=== PATIENT | female | born 1975 | race Caucasian/White ===

== ENCOUNTER → 2019-01-27 | Outpatient (CLI) | payer BC ==
--- NOTE | 2019-01-24 08:30 | NUR ---
LEFT MSG ON MACHINE TO CALL BACK SO I CAN GO OVER MEDS, ALLERGIES AND PMH. PHONE NUMBER LEFT ON MACHINE
[~2019-01-27] VITALS: Ht 165.1 cm; Wt 141.7 kg
[~2019-01-27] MED LIST: ABILIFY 10MG TA10 MG PO; AJOVY225 MG/1.5 SQ; ANTIVERT 25MG25 MG PO; BUSPAR5 MG PO; CATAFLAM50 MG PO; CELEXA40 MG PO; CYMBALTA 30MG30 MG PO; EFFE25TA PO; EFFEXOR 75M75 MG/TAB PO; ESCITALOPRAM; ESTRACE 1MG1 MG/TAB PO; EXCEDRIN TENSION HA PO; FASTIN30 MG PO; FERROUS SULFATE27 MG PO; GUAIATUSSIN AC120 ML PO; IBUPROFEN 200200 MG PO; LAMOTRIGINE; LEVAQUIN 5500 MG/TA1 PO; LEVOXYL0.1 MG PO; LEXAPRO 10MG10 MG PO; LORTAB 5/500 501 TAB; LORTAB 7.5/5001 TAB PO; MAG-OX 400400 MG/TAB PO; MIRAPEX0.25 MG PO; MISOPROSTOL200 MCG PO; MOBIC15 MG PO; MUCINEX 60600 MG/TA1 PO; MULTI VITAMINS1 TAB PO; MULTIPLE VITAMI1 CAP PO; NORCO 325 MG-51 TAB PO; PERCOCET 325 MG1 TA2 PO; PREMARIN 1.251.25 MG PO; PRENATAL1 TA1 PO; PRILOSEC 20MG20 MG PO; PROTONIX 40MG T40 MG PO; REQUIP3 MG PO; SYNTHROID 0.10.15 MG PO; TUSS PO; ULTRAM 50MG TAB50 MG PO; XANAX .25M0.25 MG/TA PO; ZANAFLEX CAPSULE2 MG PO; ZOFRAN 4MG T4 MG/TAB PO; ZOLOFT 100MG100 MG PO; ZOMIG5 M1 NS; [UNRECOGNIZED DRUG - OTHER] PO
[2019-01-27 05:45] VITALS: BP 142/95; PULSE 88
[2019-01-27 07:11] VITALS: BP 141/84; PULSE 82
[2019-01-27 07:18] VITALS: BP 152/80; PULSE 99
[2019-01-27 07:19] VITALS: BP 140/74; PULSE 96
[2019-01-27 07:20] VITALS: BP 136/79; PULSE 88
== END ==
LOC: COL.CARD 05:16
DX: I20.8 Other forms of angina pectoris (principal)
CPT/HCPCS: A9500; J2785

== ENCOUNTER 2019-02-08 11:15 | Day surgery (SDC) | payer BC ==
[~2019-02-08] VITALS: Ht 165.1 cm; Wt 140.5 kg
[2019-02-08] VITALS (9 sets, daily range): BP systolic 116–133; BP diastolic 59–85; PULSE 89–96; TEMP 98.1
[2019-02-08 11:55] LABS: HEMATOCRIT 41.7 % (37.0-47.0); HEMOGLOBIN 13.9 g/dl (12.5-16.0); MEAN CELL VOLUME 91 fl (80.0-100.0); MEAN CORPUSCULAR HEMOGLOBIN 30 pg (27.0-31.0); MEAN CORPUSCULAR HGB CONC 33 g/dl (33.0-37.0); MEAN PLATELET VOLUME 9.1 fl (7.4-10.4); PLATELET COUNT 387 K/mm3 (130-400); RED BLOOD COUNT 4.58 M/mm3 (4.10-5.30); REDCELL DISTRIBUTION WIDTH-CV 13.1 % (11.5-14.5)
[2019-02-08 12:02] LABS: PROTHROMBIN TIME 11.4 SECONDS (9.7-12.8)
[2019-02-08] MEDS ORDERED: MAG-OX 400400 MG/TAB PO (12:04)
[2019-02-08] MEDS ORDERED: EFFEXOR-XR150 MG PO (12:08)
[2019-02-08 12:09] LABS: CALCIUM 9.4 mg/dL (8.4-10.2); CREATININE, serum 0.65 mg/dL (0.52-1.25); POTASSIUM 4.1 mmol/L (3.4-5.0)
--- NOTE | 2019-02-08 16:54 | NUR ---
SEE FA[facility]AD FOR MEDICATION ADMINISTRATION TIMES AND INTRA AND POST SEDATION ASSESSMENT, RASS SCORE.
--- NOTE | 2019-02-08 17:18 | NUR ---
Back from [facility]. TR band to right wrsit with 12 cc air, good pulses noted and cap refill < 3 secs noted. VSS. Mother bedside
--- NOTE | 2019-02-08 19:39 | NUR ---
TR band deflated with no bleeding. Pressure dressing applied. INT discontinued intact. Discharge instructions given. Transferred to private car by nilda
== END 2019-02-08 19:41 | disposition home or self-care (01) ==
LOC: COL.CAR 11:15
PROVIDERS: Internal Medicine Cardiovascular Disease
DX: I25.118 Atherosclerotic heart disease of native coronary artery with other forms of angina pectoris (principal); I10 Essential (primary) hypertension; R60.0 Localized edema; K21.9 Gastro-esophageal reflux disease without esophagitis; F32.9 Major depressive disorder, single episode, unspecified; E66.9 Obesity, unspecified; E03.9 Hypothyroidism, unspecified; E78.5 Hyperlipidemia, unspecified; Z68.43 Body mass index [BMI] 50.0-59.9, adult; Z90.710 Acquired absence of both cervix and uterus; Z83.3 Family history of diabetes mellitus; Z82.49 Family history of ischemic heart disease and other diseases of the circulatory system; Z80.9 Family history of malignant neoplasm, unspecified; Z91.040 Latex allergy status; Z88.8 Allergy status to other drugs, medicaments and biological substances
CPT/HCPCS: J1644; J2250; J2405; J3010; Q9967

== ENCOUNTER 2019-04-26 11:13 | Outpatient (CLI) | payer BC ==
[~2019-04-26] VITALS: Ht 165.1 cm; Wt 138.6 kg
[~2019-04-26 11:13] MED LIST changes: -CATAFLAM50 MG PO; +EFFEXOR-XR150 MG PO; -LEVOXYL0.1 MG PO; +LEVOXYL0.2 MG PO; +VOLTAREN 50MG T50 MG PO
[2019-04-26 11:35] VITALS: BP 116/65; PULSE 79; TEMP 98
--- NOTE | 2019-04-26 11:37 | NUR ---
Pt arrived for scheduled infusion early.This nurse called and requested orders three times.Per office they are awaiting PA info and will send orders.Spoke with Sallie again at 1130,Per Sallie they will fax orders shortly.
[2019-04-26] MEDS ORDERED: MAG-OX 400400 MG/TAB PO (13:57)
[2019-04-26] MEDS ORDERED: VITAMIN D 50,1.25 MG PO (14:00)
[2019-04-26] MEDS ORDERED: AIMOVIG AU70 MG/1 ML SQ (14:02)
[2019-04-26] MEDS ORDERED: MIRAPEX 1MG PO (14:03)
[2019-04-26] MEDS ORDERED: ZESTRIL 20MG TA20 MG PO (14:09)
[2019-04-26] MEDS ORDERED: NORCO 325 MG-51 TAB PO (14:17)
[2019-04-26] MEDS ORDERED: RELPAX 40MG TAB40 MG PO (14:18)
== END 2019-04-26 14:18 | disposition home or self-care (01) ==
LOC: EUO 11:13
DX: G43.719 Chronic migraine without aura, intractable, without status migrainosus (principal)
CPT/HCPCS: J2550; J3475

== ENCOUNTER → 2019-05-18 | Outpatient (CLI) | payer BC ==
[~2019-05-18] VITALS: Ht 165.1 cm; Wt 138.2 kg
[~2019-05-18] MED LIST changes: +AIMOVIG AU70 MG/1 ML SQ; +MIRAPEX 1MG PO; +RELPAX 40MG TAB40 MG PO; +VITAMIN D 50,1.25 MG PO; +ZESTRIL 20MG TA20 MG PO
[2019-05-18 13:22] VITALS: BP 144/91; PULSE 94
[2019-05-18 13:55] VITALS: BP 122/73; PULSE 90
[2019-05-18 14:00] VITALS: BP 122/73; PULSE 89
--- NOTE | 2019-05-18 14:00 | NUR ---
PT TO EU 11 VIA CART FROM LUMBAR PUNCTURE, PT IS ALERT, MOVES WELL IN BED. BANDAID TO LOWER BACK IS CLEAN AND DRY. CALL LIGHT IN REACH, MOTHER IN ROOM
[2019-05-18 14:30] VITALS: BP 115/71; PULSE 88
[2019-05-18 14:31] LABS: GLUCOSE,CSF 53 mg/dL (40-70); TOTAL PROTEIN,CSF 36 mg/dL (15-45)
[2019-05-18 15:00] VITALS: BP 117/75; PULSE 89
--- NOTE | 2019-05-18 15:00 | NUR ---
PT UP ON BSC TO VOID, DR MARTINS NOTIFIED AND STATED SHE MAY, TOLERATED WELL, BACK TO BED, NO C/O
[2019-05-18 15:12] LABS: CSF APPEARANCE CLEAR; CSF COLOR COLORLESS; CSF MONONUCLEAR 50 % (70-100); CSF POLYMORPHONUCLEAR 50 % (0-6); CSF RBC 1 /mm3 (0-0)
[2019-05-18 15:30] VITALS: BP 119/70; PULSE 87
--- NOTE | 2019-05-18 15:30 | NUR ---
REVIEWED DISCHARGE INST. GIVEN TO MOM AND PT WITH VERBAL UNDERSTANDING ON ACTIVITY, CARE OF SITE AND FOLLOWUP WITH ORDERING DRKvng AT 1550 PT SAT ON SIDE OF BED, TOLERATED WELL, BANDAID SITE REMAINS THE SAME. UP IN ROOM, THEN DISCHARGED VIA W/C TO CAR WITH MOM
== END ==
LOC: COL.RAD 12:59
PROVIDERS: Nurse Practitioner
DX: G43.011 Migraine without aura, intractable, with status migrainosus (principal)

== ENCOUNTER → 2019-05-20 | Outpatient (CLI) | payer BC | LOC: COL.RAD 10:09 | DX: G43.011 Migraine without aura, intractable, with status migrainosus (principal) | CPT/HCPCS: A9585 ==

== ENCOUNTER → 2019-06-01 | Outpatient (CLI) | payer BC | LOC: MHCPAIN 13:02 | DX: G89.29 Other chronic pain (principal); M47.812 Spondylosis without myelopathy or radiculopathy, cervical region; R51 Headache; M54.81 Occipital neuralgia | CPT/HCPCS: G0463 ==

== ENCOUNTER → 2019-06-06 | Outpatient (CLI) | payer BC | LOC: MHCPAIN 12:36 | DX: M54.81 Occipital neuralgia (principal) | CPT/HCPCS: J1100 ==

== ENCOUNTER → 2019-06-15 | Outpatient (CLI) | payer BC | LOC: MHCPAIN 11:11 | DX: G89.29 Other chronic pain (principal); M54.81 Occipital neuralgia; R51 Headache; M47.812 Spondylosis without myelopathy or radiculopathy, cervical region | CPT/HCPCS: G0463 ==

== ENCOUNTER → 2019-07-13 | Outpatient (CLI) | payer BC | LOC: MHCPAIN 13:13 | DX: G89.29 Other chronic pain (principal); M54.81 Occipital neuralgia; R51 Headache; M47.812 Spondylosis without myelopathy or radiculopathy, cervical region | CPT/HCPCS: G0463 ==

== ENCOUNTER → 2019-12-16 | Outpatient (CLI) | payer BC | LOC: COL.RAD 07:28 | DX: R19.7 Diarrhea, unspecified (principal); R12 Heartburn; R11.2 Nausea with vomiting, unspecified | CPT/HCPCS: A9541 ==

== ENCOUNTER 2021-04-30 13:08 | Outpatient (CLI) | payer BC ==
[~2021-04-30] VITALS: Ht 162.6 cm; Wt 136.3 kg
[2021-04-30 13:44] VITALS: BP 137/79; PULSE 90; TEMP 98.4
[2021-04-30] MEDS ORDERED: SINEMET 25/101 UDTAB PO (13:46)
[2021-04-30 14:00] VITALS: BP 127/69; PULSE 86
[2021-04-30 14:15] VITALS: BP 133/72; PULSE 88
[2021-04-30 14:30] VITALS: BP 138/77; PULSE 83
[2021-04-30 14:45] VITALS: BP 129/70; PULSE 89
== END 2021-04-30 15:14 ==
LOC: EUO 13:08
DX: G43.709 Chronic migraine without aura, not intractable, without status migrainosus (principal)
CPT/HCPCS: J3032-TB

== ENCOUNTER 2022-04-23 08:43 | Outpatient (CLI) | payer BC ==
[2022-04-23] VITALS (7 sets, daily range): BP systolic 116–139; BP diastolic 72–88; PULSE 80–85; TEMP 98.2
[~2022-04-23] VITALS: Ht 162.6 cm; Wt 132.9 kg
[~2022-04-23 08:43] MED LIST changes: +SINEMET 25/101 UDTAB PO
[2022-04-23 11:49] LABS: CSF APPEARANCE CLEAR; CSF COLOR COLORLESS; CSF RBC < 1 /mm3 (0-0)
[2022-04-23 11:50] LABS: CSF MONONUCLEAR 100 % (70-100); CSF POLYMORPHONUCLEAR 0 % (0-6)
[2022-04-23 12:05] LABS: GLUCOSE,CSF 52 mg/dL (40-70); TOTAL PROTEIN,CSF 30 mg/dL (15-45)
== END 2022-04-23 12:15 | disposition home or self-care (01) ==
LOC: COL.RAD 08:43
PROVIDERS: Nurse Practitioner
DX: G43.719 Chronic migraine without aura, intractable, without status migrainosus (principal); E23.6 Other disorders of pituitary gland

== ENCOUNTER → 2024-10-14 | Outpatient (CLI) | payer MEDICARE, MEDICAID | LOC: COL.RAD 08:06 | DX: Z01.818 Encounter for other preprocedural examination (principal); K44.9 Diaphragmatic hernia without obstruction or gangrene; K21.9 Gastro-esophageal reflux disease without esophagitis; E66.813 Obesity, class 3; E66.01 Morbid (severe) obesity due to excess calories; Z68.43 Body mass index [BMI] 50.0-59.9, adult ==